=== PATIENT | female | born 2005 | race African-American/Black ===

== ENCOUNTER 2023-02-07 14:35 | Outpatient (CLI) | payer OTHER, SELFPAY ==
--- NOTE | ~2023-02-07 | US_ITS ---
EXAMINATION: US pelvic complete w TV DATE: 02/07/2023 15:31 INDICATION: Menorrhagia Comparison:No prior studies for comparison. TECHNIQUE: Multiple transabdominal and endovaginal sonographic images of the pelvis performed. FINDINGS: The uterus measures 5.3 x 2.8 x 3.3 cm. The endometrial complex measures 7.5 mm. The right ovary measures 2.9 x 1.9 x 3.6 cm and the left ovary measures 2.6 x 2.1 x 1.5 cm. There ar e small follicles in each ovary. Normal doppler signal in both ovaries. There is no free fluid in the pelvis. There are no abnormal masses seen on either side. IMPRESSION: 1. Unremarkable pelvic ultrasound. Reviewed, dictated and finalized at location L. OR ORACLE DATABASE ADMINISTRATOR
== END 2023-02-07 14:36 | disposition home or self-care (01) ==
PROVIDERS: Visit Provider Nurse Practitioner
DX: N92.1 Excessive and frequent menstruation with irregular cycle (principal)
CPT/HCPCS: 76830; 76856

== ENCOUNTER 2024-08-10 01:34 | Day surgery (SDC) | payer OTHER, SELFPAY ==
[2024-08-04 12:05] VITALS: BMI 62.6
--- NOTE | 2024-08-04 13:10 | PC.NURSE ---
Report to the Outpatient Waiting Room, entrance under the green pavilion located off [facility], at time _0700 on date _08/10/24 . Planned Procedure Time: _0900 .? Time changes happen often and if your time is changed the preop area will call you the afternoon before. - You and your visitor will be asked to self-screen and do not enter if you have any COVID symptoms. Please call surgeon if you need to reschedule. - A mask is optional within the hospital at this time. Patients may have clear liquids (water, carbonated beverages, clear teas, apple juice) until 3 hours prior to surgery with a maximum of 20 ounces. - No food from midnight until time of surgery and no smoking, or chewing tobacco (or any form of nicotine). No chewing gum, candy or mints. - Infants may have breast milk until 4 hours before surgery, infant formula 6 hours prior to surgery. - Children will be allowed to drink immediately following surgery.? If applicable, please bring a bottle or sippy cup to assist with drinking. Juice, water, soda, and popsicles are readily available.? For infants on formula, please bring formula the day of surgery.? Pacifiers are allowed. Take only the following medications with a SIP of water on the morning of surgery: _N/A DO NOT STOP ANY OF YOUR OTHER PRESCRIPTION MEDICATIONS PRIOR TO SURGERY EXCEPT THE FOLLOWING Hold all vitamins and supplements for 3 days per anesthesiologist. Medications to discontinue per physician ____N/A Date to take last dose____N/A Please no make-up, nail icelandic, hairspray, perfume, deodorant, or body powder the day of surgery.? No jewelry (including any body piercings) or valuables the day of surgery, leave them at home.? Please take a shower or bath the night before, or the morning of, surgery with an antibacterial soap.? Wear comfortable, loose fitting clothing.? Children are encouraged to wear pajamas. - Jewelry must be removed prior to entering the operating room.? Rings and piercings that are not removed may be cut off. - The hospital will not accept responsibility for valuables.? - Please leave all valuables, including medications, at home the day of surgery. If you are going home after surgery, a licensed racing car driver must drive you home.? - NO public transportation without another adult if you receive anesthesia. - We recommend that an adult stay with you for 24 hours following discharge. - We also recommend that you do not drive, make important decision, drink alcoholic beverages, or take any drugs that were not prescribed by your health care provider for at least 24 hours after your discharge time. For Pediatric surgeries, we recommend two adults accompany the child home. Follow any additional instructions given to you from your surgeon. Telephone instructions given to Jammie and asked if any additional questions and then verbalized understanding. Patient advised to call surgeon office or pre surgery nurse liaison [phone] if any additional questions.
--- OUTSIDE RECORDS SUMMARY | 2024-08-10 01:46 | XMS_ITS | Patient Health Record ---
Author Organization [facility] Address [address] [place] [address] Care Team Providers Care Take Up Supervisor Name Role Phone BañuelosAlex Primary Care Provider Allergies No Known Allergies Reason For Referral No Information Medications Medication SIG (Take, Route, Frequency, Duration) Notes Start Date End Date Status Ibuprofen 200 MG 2 capsules Orally Three times a day As needed Active Albuterol Sulfate HFA 108 (90 Base) MCG/ACT 2 puffs Inhalation every 6 hours for 30 days As needed 01/08/2024 Active Social History Tobacco Use: Social History Observation Description Date Details (start date - stop date) Never Smoker NA - NA Tobacco Control (Standard) Question Answer Notes Tobacco use: Nonsmoker AUDIT-C (Standard) Question Answer Notes Did you have a drink contain ing alcohol in the past year? Yes How often did you have six o r more drinks on one occasion in the past year? Never (0 point) How many drinks did you have on a typical day when you were drinking in the past year? 1 or 2 drinks (0 point) How often did you have a dri nk containing alcohol in the past year? Monthly or less (1 point) Points 1 Interpretation Negative Problems Problem Type SNOMED Code ICD Code Onset Dates Problem Status W/U Status Risk Notes Problem Morbid obesity (disorder) (437895164) Morbid (severe) obesity due to excess calories (E66.01) Active confirmed Problem Hyperglycemia (58151112) Hyperglycemia (R73.9) Active confirmed Problem Asthma (165931971) Asthma (J45.909) Active conf irmed Problem Left knee pain (484990403393343) Left knee pain (M25.562) Active confirmed Problem Urinary tract infectious disease (94190710) UTI (urinary tract infection) (N39.0) Active confirmed Problem Gastroesophageal reflux disease (815964181) GERD without esophagitis (K21.9) Active confirmed Problem History of tonsillectomy (situation) (124833448) S/P tonsillectomy (Z90.89) Active confirmed Vital Signs Heart Rate 75 /min 04/28/2024 ple Temperature 97.9 degrees Fahrenheit 04/28/2024 ple Respiratory Rate 16 /min 04/28/2024 ple Oximetry 99 % 04/28/2024 ple Blood pressure diastolic 86 mm Hg 04/28/2024 ple Height 66 in 04/28/2024 ple Blood pressure systolic 132 mm Hg 04/28/2024 ple Weight 382 lbs 04/28/2024 ple BMI 61.65 kg/m2 04/28/2024 ple Encounters Encounter Location Date Provider Diagnosis [address] [address] 12/04/2023 Alex Bañuelos Asthma J45.909 ; Morbid (severe) obesity due to excess calories E66.01 ; S/P tonsillectomy Z90.89 ; GERD without esophagitis K21.9 and Left knee pain M25.[address] [address] 12/18/2023 Alex Bañuelos Asthma J45.909 ; Morbid (severe) obesity due to excess calories E66.01 ; GERD without esophagitis K21.9 ; Hyperglycemia R73.9 and UTI (urinary tract infection) N39.0 [place] [id number] [address] 01/08/2024 Aelx Bañuelos Asthma J45.909 ; UTI (urinary tract infection) N39.0 ; GERD without esophagitis K21.9 and Hyperglycemia R73.[address] [address] 04/28/2024 Alex Bañuelos Asthma J45.909 ; DOM D without esophagitis K21.9 ; Hyperglycemia R73.9 ; Morbid (severe) obesity due to excess calories E66.01 and Left knee pain M25.562 Assessments Encounter Date Diagnosis (ICD Code) Assessment Notes Treatment Notes Treatment Clinical Notes Section Notes 04/28/2024 Asthma (ICD-10 - J45.909) Asthma in Adults: Care Instructions material was published 12/18/2023 Morbid (severe) obesity due to excess calories (ICD-10 - E66.01) 12/18/2023 Asthma (ICD-10 - J45.909) 12/04/2023 Morbid (severe) obesity due to excess calories (ICD-10 - E66.01) 12/04/2023 Asthma (ICD-10 - J45.909) Asthma in Adults: Care Instructions material was published 01/08/2024 Asthma (ICD-10 - J45.909) Asthma in Adults: Care Instructions material was published 01/08/2024 UTI (urinary tract infection) (ICD-10 - N39.0) 12/04/2023 S/P tonsillectomy (ICD-10 - Z90.89) 04/28/2024 GERD without esophagitis (ICD-10 - K21.9) 12/18/2023 GERD without esophagitis (ICD-10 - K21.9) 01/08/2024 GERD without esophagitis (ICD-10 - K21.9) 12/18/2023 Hyperglycemia (ICD-10 - R73.9) 04/28/2024 Hyperglycemia (ICD-10 - R73.9) 12/04/2023 GERD without esophagitis (ICD-10 - K21.9) 04/28/2024 Morbid (severe) obesity due to excess calories (ICD-10 - E66.01) 12/18/2023 UTI (urinary tract infection) (ICD-10 - N39.0) Urinary Tract Infection (UTI) in Women: Care Instructions material was published 01/08/2024 Hyperglycemia (ICD-10 - R73.9) 12/04/2023 Left knee pain (ICD-10 - M25.562) 04/28/2024 Left knee pain (ICD-10 - M25.562) Plan Of Treatment No Information Insurance Providers Payer Name Payer Address Payer Phone Subscriber Number Group Number Insured Name Patient Relationship to Insured Coverage Start Date Coverage End Date [employer] [address] [place], [place] [address] [phone] [id number] Dario Bustamante Self - patient is the insured 4 Medical (General) History Medical History History ICD Code Asthma Surgical History Surgery Date(Month/Year) Tonsillectomy 2018
--- OUTSIDE RECORDS SUMMARY | 2024-08-10 01:46 | XMS_ITS | Clinical Summary ---
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 Gender Identity Not on file Sexual Orientation Not on file Obstetrics History Last Filed Vital Signs Vital Sign Reading Time Taken Comments Blood Pressure 149/70 10/22/2021 9:21 PM CDT Pulse 69 10/22/2021 9:21 PM CDT Temperature 36.8 C (98.2 F) 10/22/2021 9:21 PM CDT Respiratory Rate 16 10/22/2021 9:21 PM CDT Oxygen Saturation 96% 10/22/2021 9:21 PM CDT Inhaled Oxygen Concentration - - Weight 130.5 kg (287 lb 11.2 oz) 10/22/2021 9:21 PM CDT Height 167.6 cm (5' 6) 10/22/2021 9:21 PM CDT Body Mass Index 46.44 10/22/2021 9:21 PM CDT Plan of Treatment Health Maintenance Due Date Last Done Comments Cervical Cancer Screening 2003 Depression Screening 2003 Hepatitis C Screening 2003 Pneumococcal vaccine <65 (1 of 1 - PPSV23) 2009 01/10/2004, 2003, 2003, Additional history exists Meningococcal B Vaccine (2 o f 2 - Bexsero SCDM 2-dose series) 02/11/2020 08/12/2019 Regular Well Visit/Exam 18-64 2021 Influenza Vaccine (Season Ended) 2024 12/28/2015, 12/01/2014, 11/30/2013, Additional history exists DTaP/Tdap/Td Vaccine (7 - Td or Tdap) 11/24/2024 11/24/2014, 08/21/2007, 03/13/2004, Additional history exists Hepatitis B Screening Completed 2003 , 2003, 2003 Varicella Vaccines Completed 08/21/2007, 03/13/2004 HPV Vaccines Completed 11/24/2014, 11/30/2013 Meningococcal Vaccine Completed 08/12/2019, 015 Insurance Care Teams Sack Sorter Relationship Specialty Start Date End Date Unknown, Notinfile PCP - General 10/22/21
--- OUTSIDE RECORDS SUMMARY | 2024-08-10 01:46 | XMS_ITS | Clinical Summary ---
Author Organization [facility] Address [address] [place] [address] Care Team Providers Care Pharmacy Clinical Coordinator Name Role Phone Unavailable Primary Care Provider Unavailabl e Source Comments [facility],non-owned Affiliates and Associated Physician Practices is amultiple site organization consisting of ambulatory clinics and hospital sitesin [place], [place], [place] and [place]. This disclosure is being madepursuant to the Care Everywhere program and may not contain all information available regarding this patient. Last updated 17.Reading Room [facility] Allergies Active Allergy Reactions Criticality Noted Date Comments Shellfish Allergy 03/23/2015 Medications * Be aware that medications may not be up to date on this document. Alwaysverify current medications with the patient. albuterol HFA (PROVENTIL;VENTOL IN;PROAIR) 108 (90 BASE) MCG/ACT inhaler Inhale 2 Puffs by mouth every 6 hours as needed. 1 Inhaler 5 1 Active albuterol (PROVENTIL;VENTOL IN) (2.5 MG/3ML) 0.083% nebulizer solution Inhale 5 mg by mouth every 4 hours while awake. 1 Box 4 1 Active albuterol HFA (PROVENTIL;VENTOL IN;PROAIR) 108 (90 BASE) MCG/ACT inhaler Inhale 2 Puffs by mouth every 4 hours as needed for Shortness of Breath, Wheezing or Cough. 1 Inhaler 5 1 Active vitamin D, ergocalciferol, (DRISDOL) 91107 UNITS capsuleIndication s:Vitamin D deficiency Take 1 Cap by mouth every 7 days 4 Cap 1 6 Active beclomethasone dipropionate (QVAR) 80 MCG/ACT inhaler Inhale 2 Puffs by mouth 2 times daily Active montelukast (SINGULAIR) 5 MG chew tablet Take 5 mg by mouth at bedtime Active melatonin 10 MG capsule Take 10 mg by mouth at bedtime Active FLUoxetine (PROZAC) 10 MG capsule Take 10 mg by mouth once daily Active docusate sodium (COLACE) 150 MG/15ML solution Take 10 mL by mouth once daily 75 mL 7 Active Active Problems Problem Noted Date Diagnosed Date Sprain of anterior talofibular ligament of right ankle 02/15/2017 Restless sleeper 08/06/2016 Overview (08/06/2016): Neg diag psg 07/29/16 rx Singulair OAHI 0.9 AHI 1.4 RDI 1.6 Min 02 sat 84% plm index 0.9 Congenital pes planus 06/02/2015 Prediabetes 03/23/2015 Right knee pain 02/15/2015 Social History Tobacco Use Types Packs/Day Years Used Date Smoking Tobacco: Passive Smo ke Exposure - Never Smoker Smokeless Tobacco: Current Alcohol Use Standard Drinks/Week Comments No 0 (1 standard drink = 0.6 oz pur e alcohol) Comments No Sex and Gender Information Value Date Recorded Sex Assigned at Not on file Legal Sex Female 9:51 AM OUTSIDE FOOD SERVER Gender Identity Not on file Sexual Orientation Not on file Last Filed Vital Signs Vital Sign Reading Time Taken Comments Blood Pressure 112/97 11/08/2016 3:15 PM CDT Pulse 81 11/08/2016 3:15 PM CDT Temperature 36.4 C (97.6 F) 11/08/2016 1:05 PM CDT Respiratory Rate 23 11/08/2016 3:15 PM CDT Oxygen Saturation 95% 11/08/2016 3:15 PM CDT Inhaled Oxygen Concentration - - Weight 104.4 kg (230 lb 2.6 oz) 018 11:29 AM OUTSIDE FOOD SERVER Height 167 cm (5' 5.75) 03/13/2017 11: 29 AM OUTSIDE FOOD SERVER Body Mass Index 37.43 03/13/2017 11:29 AM OUTSIDE FOOD SERVER Plan of Treatment Health Maintenance Due Date Last Done Comments HIV SCREENING 2018 HPV VACCINE (1 - 3-dose series) 2018 CHLAMYDIA/GONORRHEA SCREENING 2019 MENINGOCOCCAL (Group B) VACC INE SHARED DECISION-MAKING (1 of 2 - Standard) 2019 HEPATITIS C SCREENING 12/31/2020 DTAP/TDAP/TD VACCINES (1 - Tdap) 2022 HEPATITIS B VACCINE (1 of 3 - 19+ 3-dose series) 2022 COVID-19 VACCINE (1 - 2023-2 5 season) 2023 DEPRESSION SCREENING 03/11/2024 INFLUENZA VACCINE (Season Ended) 2024 ZOSTER VACCINE (1 of 2) 2053 HIB VACCINE Aged Out No longer eligi ble based on patient's age to complete this topic MENINGOCOCCAL GROUPS A/C/Y/W VACCINE Aged Out No longer eligible b ased on patient's age to complete this topic PNEUMOCOCCAL VACCINE Aged Out No long er eligible based on patient's age to complete this topic Insurance [facility]
--- OUTSIDE RECORDS SUMMARY | 2024-08-10 01:46 | XMS_ITS ---
Author Organization [facility] Address [address] [place] [address] Care Team Providers Care Puffer Tender Name Role Phone Alex Bañuelos Primary Care Provider Encounters Encounter Location Date Provider Diagnosis [place] [id number] [facility] [address] [place] [address] 04/16/2024 Alex Bañuelos Plan Of Treatment No Information Progress Notes * Dario CARRERODOB:[birth year] (19 yo F)Acc No.[id number]:04/16/2024 Progress Notes Patient: Dario LOZANO Provider: Dominik Bañuelos M.D. :2005 A ge:19 Y S ex:Female Date:04/16/2024 Address:[address] [place], [place] [id number] Subjective: * Chief Complaints: * * Medical History: Objective: * Vitals: Assessment: Plan: * Treatment: * * Electronic signature of Sharon Bañuelos MD on 08/10/2024 at 02:46 AM EDT Sign off status: Pending * Provider: Dominik Bañuelos M.D. Date: 04/16/2024 Generated for Printi ng/Faakankshag/eTransmitting on: 0 08/10/2024 02:46 AM EDT
--- OUTSIDE RECORDS SUMMARY | 2024-08-10 01:46 | XMS_ITS | Referral Summary ---
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
--- OUTSIDE RECORDS SUMMARY | 2024-08-10 01:46 | XMS_ITS ---
Author Organization [facility] Address [address] [address] Care Team Providers Care Colorectal Surgeon Name Role Phone Alex Bañuelos Primary Care Provider Allergies No Known Allergies REASON FOR VISIT F/U Asthma Medications Medication SIG (Take, Route, Frequency, Duration) [...] (Standard) Question Answer Notes Tobacco use: Nonsmoker Vital Signs Temperature 97.9 degrees Fahrenheit 04/28/19 25 Blood pressure systolic 132 mm Hg 04/28/19 25 Blood pressure diastolic 86 mm Hg 025 Heart Rate 75 /min 04/28/2024 Respiratory Rate 16 /min 04/28/2024 Height 66 in 04/28/2024 Weight 382 lbs 04/28/2024 BMI 61.65 kg/m2 04/28/2024 Oximetry 99 % 04/28/2024 ple Encounters Encounter Location Date Provider Diagnosis [facility] [address] [place] [address] [address] [place] [address] 04/28/2024 Alex Bañuelos Asthma J45.909 ; DOM D without esophagitis K21.9 ; Hyperglycemia R73.9 ; Morbid (severe) obesity due to excess calories E66.01 and Left knee pain M25.562 Assessments Encounter Date Diagnosis (ICD Code) Assessment Notes Treatment Notes Treatment Clinical Notes Section Notes 04/28/2024 Asthma (ICD-10 - J45.909) Asthma in Adults: Care Instructions material was published 04/28/2024 GERD without esophagitis (ICD-10 - K21.9) 04/28/2024 Hyperglycemia (ICD-10 - R73.9) 04/28/2024 Morbid (severe) obesity due to excess calories (ICD-10 - E66.01) 04/28/2024 Left knee pain (ICD-10 - M25.562) Plan Of Treatment Treatment Notes Assessment Notes Asthma Asthma in Adults: Ca re Instructions material was published Progress Notes * Dario CARRERODOB:[birth year] (19 yo F)Acc No.[id number]:04/28/2024 Progress Notes Patient: Dario LOZANO Provider: Dominik Bañuelos M.D. :2005 A ge:19 Y S ex:Female Date:04/28/2024 Address:[address] [place] [address] Subjective: * Chief Complaints: * 1 . F/U Asthma. * ROS: C onstitutional: No C onstit. Complaints . D enies A ppetites change . D enies E xcessive sweating . D enies F atigue . D enies F ever. D enies N ight sweats . D enies W eight gain. D enies W eight loss. E yes: No E ye complaints . D enies B lurred vision. D enies C orrective lenses. D enies D iplopia. D enies E ye irritation . D enies E ye pain . D enies S pots in vision . D enies V ision loss. ? E ars, nose, mouth, throat: No E NT complaints . D enies E ar pain . D enies H earing loss . D enies T innitus. D enies V ertigo. D enies F acial pain . D enies N key discharge. D enies N key obstruction . D enies N osebleeds. D enies P ostnasal drainage . D enies B leeding gums. D enies D ental pain . D enies M outh Lesions . D enies H oarseness. D enies S ore throat .? C ardiovascular: No C ardiovas. Complaints. D enies C hest pain .?Denies D ecr. exercise tolerance . D enies E xertional dyspnea . D enies O rthropnea. D enies P alpitations. D enies S yncope. D enies C laudication . Denies L eg ulcers . D enies P eripheral edema. R espiratory: No R espiratory Complaints . D enies C ough . D enies S putum production . D enies H emoptysis . D enies S hortness of Breath .?Denies P leuritic pain . D enies W heezing . D enies S noring . D enies A pneas. G astrointestinal: No G I Complaints . D enies A bdominal pain . D enies B loating . D enies F ood intolerance . D enies N ausea. D enies V omiting . D enies D ysphagia . D enies R eflux/heartburn . D enies C hange in bowel habits . D enies C onstipation . D enies D iarrhea . D enies B lack stools . D enies B loody stools. G enitourinary: No G U Complaints . D enies C hange in urinary stream . D enies D ysuria . D enies H ematuria . D enies I ncontinence . D enies N octuria . D enies U rinary frequency . D enies U rinary urgency . D enies D ysmenorrhea. D enies D yspareunia. D enies S exual dysfunction . D enies V aginal discharge . M usculoskeletal: Denies B ack pain . A dmits J oint pain . D enies J oint swelling . D enies L imited range of motion . D enies M uscle aches.?Denies M uscle weakness . D enies S tiffness . N eurologic: No N eurologic Complaints . D enies A bnormal gait . D enies F ocal weakness . D enies H eadache . D enies I ncoordination .?Denies M milo problems . D enies N umbness . D enies S eizures . D enies?Slurred Speech. P sychiatric: No P sychiatric Complaints . D enies A nxiety .?Denies D ecreased concentration . D enies I rritability . D enies P anic attacks . D enies S leep disturbance . D enies S adness/tearfulness. H ematologic/lymphatic: No H em/Lymph Complaints . D enies B ruising . D enies B leeding tendencies . D enies L ymphadenopathy . D enies R ecurrent infections . A llergic/immunologic: No A ll/Imm Complaints . D enies E czema. D enies S easonal allergies . D enies U rticaria . E ndocrine: No E ndocrine Complaints . D enies P olydipsia .?Denies P olyphagia . D enies P olyuria . * Medical History: A sthma. * Surgical History: T onsillectomy 2018. * Family History: F ather: alive. M other: alive. 3 sister(s) - healthy. . Maternal Grandfather - Migraine GUNN. * Social History: T obacco Use: T obacco Control (Standard) T obacco use: N onsmoker. D rugs/Alcohol: D rugs H ave you used drugs other than those for medical reasons in the past 12 months??No. C affeine I ntake: 1 -2 cups per day. D o you smoke marijuana?: Denies. Do you drink alcohol?: No. * Medications: T aking Ibuprofen 200 MG Capsule 2 capsules Orally Three times a day As needed, Taking Albuterol Sulfate HFA 108 (90 Base) MCG/ACT Aerosol Solution 2 puffs Inhalation every 6 hours As needed, Medication List reviewed and reconciled with the patient * Allergies: N .K.D.A. Objective: * Vitals: T emp:97.9F, HR:75/min, BP:132/86mm Hg, Wt:382lbs, BMI:61.65Index, Ht: 66 in, RR:16/min, Oxygen sat %:99%, Peak Flow: RA, Ht-cm: 167.64 cm, Wt-k.27 kg. ple. * Examination: G eneral Examination: FUNCTIONAL STATUS A mbulatory . COGNITIVE STATUS A lert and oriented. GENERAL APPEARANCE: i n no acute distress, well developed, well nourished. NUTRITIONAL STATUS N ormal . ASSISTED DEVICES N one. HEAD: n ormocephalic, atraumatic. EYES: p upils equal, reactive to light and accommodation.? EARS: n ormal. ORAL CAVITY: m ucosa moist. THROAT: c lear. NECK/THYROID: n sergio supple, full range of motion, no cervical lymphadenopathy. SKIN: w arm and dry. HEART: r egular rate and rhythm, S1, S2 normal. LUNGS: c lear to auscultation bilaterally. ABDOMEN: n ormal, bowel sounds present, soft, nontender, nondistended. EXTREMITIES: n o clubbing, cyanosis, or edema. NEUROLOGIC: n onfocal, cranial nerves 2-12 grossly intact, motor strength normal upper and lower extremities, sensory exam intact. PSYCH: a lert, oriented x 3. Assessment: * Assessment: 1. A sthma - J45.909 (Primary) 2 . G ERD without esophagitis - K21.9 ? 3 . H yperglycemia - R73.9 4 . M orbid (severe) obesity due to excess calories - E66.01 5 . L eft knee pain - M25.562 Plan: * Treatment: * Preventive Medicine: Counseling: C are goal follow-up plan: A akhil Normal BMI Follow-up E xercise promotion: stretching, Feeding regime. * * Electronic signature of Sharon Bañuelos MD on 08/10/2024 at 02:46 AM EDT Sign off status: Pending * Provider: Dominik Bañuelos M.D. Date: 0 04/28/2024 Generated for Valentina segundo/Sari/Rosa Mariaitting on: 0 08/10/2024 02:46 AM EDT History and Physical Notes * Examination Category Sub-Category Detail Notes Category Not es General Examination GENERAL APPEARANCE: in no ac antonio distress, well developed, well nourished HEAD: normocephalic, atrau matic EYES: pupils equal, reacti ve to light and accommodation EARS: normal THROAT: clear NECK/THYROID: neck supple, full ra nge of motion, no cervical lymphadenopathy HEART: regular rate and rhy thm, S1, S2 normal LUNGS: clear to auscultatio n bilaterally ABDOMEN: normal, bowel sounds present, soft, nontender, nondistended NEUROLOGIC: nonfocal, cranial ne rves 2-12 grossly intact, motor strength normal upper and lower extremities, sensory exam intact SKIN: warm and dry EXTREMITIES: no clubbing, cyanosi s, or edema PSYCH: alert, oriented x 3 ORAL CAVITY: mucosa moist FUNCTIONAL STATUS Ambulatory COGNITIVE STATUS Alert and oriented NUTRITIONAL STATUS Normal ASSISTED DEVICES None
--- OUTSIDE RECORDS SUMMARY | 2024-08-10 01:46 | XMS_ITS ---
Author Organization [facility] Address [address] [facility] [address] [place] [address] Care Team Providers Care Manufacturing Maintenance Mechanic Name Role Phone Alex Bañuelos Primary Care Provider [phone] Encounters Encounter Location Date Provider Diagnosis [place] [id number] [facility] [address] [place] [address] 05/27/2024 Alex Bañuelos Plan Of Treatment No Information Progress Notes * Dario CARRERODOB:[birth year] (19 yo F)Acc No.[id number]:05/27/2024 Progress Notes Patient: Dario LOZANO Provider: Dominik Bañuelos M.D. :2005 A ge:19 Y S ex:Female Date:05/27/2024 Address:[address] [place], [place] [id number] Subjective: * Chief Complaints: * * Medical History: Objective: * Vitals: Assessment: Plan: * Treatment: * * Electronic signature of Sharon Bañuelos MD on 08/10/2024 at 02:45 AM EDT Sign off status: Pending * Provider: Dominik Bañuelos M.D. Date: 05/27/2024 Generated for Printi ng/Faakankshag/eTransmitting on: 08/10/2024 02:45 AM EDT
[2024-08-10 07:00] VITALS: BP 138/78; PULSE 81; RESP 18; TEMP 36.4; O2SAT 99
[2024-08-10 07:18] LABS: BEDSIDEPREGUCG Negative (Negative)
[2024-08-10] MEDS: ACETAMINOPHEN 500 MG TABLET 1000 MG PO (07:20)
[2024-08-10] MEDS: LACTATED RINGERS 1,000 ML 30 ML IV CONT (07:25)
--- NOTE | 2024-08-10 07:26 | P.HP_ITS ---
History of Present Illness History of Present Illness Consent: Risks, benefits, and alternatives have been discussed and questions answered. Patient agrees to proceed with procedure. Chief complaint: menorrhagia Narrative: Dario Salcedo is a 19 year old female with prolonged bleeding from February of 2024 to July of 2024. Patient presents for D&C hysteroscopy. The patient did not present for care since January of 2023. The patient states no change in medical care or problems. Patient's labs reveal no anemia with a hemoglobin of 11.4. Her hemoglobin A1c however is 6.4 to noting borderline diabetes. Patient agrees to proceed with the procedure risks were discussed in the office including risks of infection, bleeding, perforation, and possible pathology. Review of Systems Review of Systems: not repeated day of surgery; patient states no changes in status PMFSH Past Medical History Medical History (Updated 08/10/24 @ 07:31 by Ewa Dillard MD) Migraine PCOS (polycystic ovarian syndrome) Depression Asthma Surgical History Surgical History (Updated 08/10/24 @ 07:29 by Ewa Dillard MD) History of tonsillectomy and adenoidectomy Social History Social History Smoking status: Never smoker Alcohol use details: socially, rare usage Living arrangements: with family Spiritual care concerns: No Meds Home Medications and Allergies Home Medications ?Medication ?Instructions ?Recorded ?Confirmed ?Type No Home Medications 08/04/24 08/04/24 History Allergies Allergy/AdvReac Type Severity Reaction Status Date / Time shellfish derived Allergy Severe Swelling Verified 08/04/24 12:04 of Lip/Tongue/Throat Vital Signs Vital Signs - 24 hr 08/10/24 07:00 Temperature 97.6 F Pulse Rate 81 Respiratory Rate 18 Blood Pressure 138/78 Pulse Oximetry 99 Oxygen Delivery Room Air Exam Const: General: overweight (388) Resp: Effort & Inspection: normal respiratory effort GI: GI Palp: No abdominal tenderness : External Female Exam: normal external appearance Speculum Exam - Vagina: normal appearance of the vagina Speculum Exam - Cervix: normal rufino earance of the cervix Bimanual exam- vagina & uterus: normal bimanual exam (Suboptimal due to weight) Assessment and Plan Assessment and plan (1) Menorrhagia: Code(s): N92.0 - Excessive and frequent menstruation with regular cycle Status: Acute Assessment and Plan: Plan to proceed with D&C hysteroscopy
--- NOTE | 2024-08-10 07:26 | WPDHPUPDATE1 ---
History and Physical Update Update Date/Time: 08/10/24 07:26 History and Physical has been reviewed, including an updated exam of the patient. There are NO changes in the patient's condition. Risks, benefits, and alternatives have been discussed and questions answered. Patient agrees to proceed with procedure.
--- NOTE | 2024-08-10 07:55 | WPDANESEPPF ---
Anes - Initial Pre Proc Eval Procedure: Operation Date: 08/10/24 09:00 Proposed Procedures p Hysteroscopy Dilation and Curettage - Ewa Dillard MD Date/Time: 08/10/24 07:55 Surgeon: Ewa Dillard MD Pre Op Diagnosis: menorrhagia Patient Data Age: 19 Gender: F Height: 1.68 m Weight: 165.8 kg Last Vital Signs Temp 36.4 C 08/10/24 07:00 Pulse 81 08/10/24 07:00 Resp 18 08/10/24 07:00 BP 138/78 08/10/24 07:00 Pulse Ox 99 08/10/24 07:00 O2 Del Method Room Air 08/10/24 07:00 Allergies Allergy/AdvReac Type Severity Reaction Status Date / Time shellfish derived Allergy Severe Swelling Verified 08/04/24 12:04 of Lip/Tongue/Throat Home Medications ?Medication ?Instructions ?Recorded ?Confirmed ?Type No Home Medications 08/04/24 08/04/24 History Laboratory Tests 08/10/24 07:16 POC Urine HCG, Qual Negative (Negative) Patient hx anesthesia problems: none Family hx anesthesia problems: none Results Review: All pre-operative results and documents have been reviewed as part of the pre-operative evaluation. [facility] Past Medical History Medical History Migraine PCOS (polycystic ovarian syndrome) Depression Asthma Surgical History Surgical History History of tonsillectomy and adenoidectomy Social History Social History Smoking status: Never smoker Alcohol use details: socially, rare usage Living arrangements: with family Spiritual care concerns: No Anes - Eval Final PreProcedure Day of Procedure 08/10/24 07:55 Patient weight: super morbidly obese Heart: regular rate and rhythm Lungs: clear to auscultation Airway: Mallampati scale class II Neurological: alert and oriented Last oral intake: >/= 8 hours ASA classification: IV Emergent: no Anesthetic plan: proceed Anesthesia type and monitoring: general LMA and standard monitoring Results Review: All pre-operative results and documents have been reviewed as part of the pre-operative evaluation. Informed Consent: The patient's anesthetic plan and its attendant risks and benefits were discussed with the patient/family/POA. Questions were solicited and answers provided to the satisfaction of the patient/family/POA.
--- NOTE | 2024-08-10 09:14 | S_PTH ---
PATIENT: Dario Salcedo LOC: [facility]#:[id number] AGE/SX: 19/F ROOM: RE08/10/[address]: Ewa Dillard MD : 2005 BED: DIS: 08/10/2024 SPEC #: [id number] RECD: 08/10/24 10:25 STATUS: BAUDILIO REGela #: [id number] ANGUS: 08/10/24 09:[address]: Ewa Dillard DEPT: [facility] Surgical RECD BY: Gloria Espinoza ENTERED: 08/10/24 10:25 SP TYPE: Surgical OTHR DR: Alex Bañuelos, Tissues: A - Endometrial Curettings Procedures: Hematoxylin and Eosin Stain Gross and Microscopic Level 4
[2024-08-10 09:24] VITALS: BP 132/91; PULSE 77; RESP 20; O2SAT 98
--- NOTE | 2024-08-10 09:25 | W.PM.PROC2 ---
Procedure Note - Detailed Date of Procedure 08/10/24 Pre-op Diagnosis menorrhagia Post-op Diagnosis Same Procedure Performed D&C hysteroscopy Surgeon Ewa Dillard MD Anesthesia MAC Findings Uterus sounds to 7cm and appears grossly thickened. No discrete lesions. Description of Procedure The patient was taken to the operating room and placed under anesthesia in the dorsal lithotomy position. She was prepped and draped in the usual sterile fashion. [place] speculum was placed in the vagina and the cervix grasped on the anterior lip with a tenaculum. The uterus is sounded to 7cm. The hysteroscope was placed and with no discrete abnormalities noted the hysteroscope was removed. The sharp curette was used to curette the endometrium until a good uterine cry was noted in all areas. All instruments are removed. Sponge, needle, and instrument counts are correct per the OR staff. The patient was awakened from anesthesia and taken to recovery in stable condition. Estimated Blood Loss 5 Drains No Packing No Pathology Yes (Endometrial curettings) Complications No immediate complications Condition Stable Disposition PACU
[2024-08-10] MEDS: fentaNYL CITRATE INJ (*CRX) 100 MCG/2 ML VIAL 25 MCG IV PUSH ×4 (09:33→09:45)
[2024-08-10] MEDS: KETOROLAC 30 MG/ML VIAL (*BKC) IV PUSH (09:35)
[2024-08-10 09:50] VITALS: BP 125/75; PULSE 55; RESP 18; O2SAT 96
[2024-08-10 10:20] VITALS: BP 125/77; PULSE 53; RESP 18
== END 2024-08-10 10:41 | disposition home or self-care (01) ==
PROVIDERS: Anesthesiology; PCP Internal Medicine; Visit Provider Obstetrics & Gynecology Gynecology
PROC: 0U5B8ZZ Destruction of Endometrium, Via Natural or Artificial Opening Endoscopic (ICD-10-PCS; CPT 58563; principal; 2024-08-10 09:00)
DX: N92.0 Excessive and frequent menstruation with regular cycle (principal); E28.2 Polycystic ovarian syndrome; F32.A Depression, unspecified; J45.909 Unspecified asthma, uncomplicated; Z98.890 Other specified postprocedural states
CPT/HCPCS: 58558; 88305; A4248; A9270; J1885; J2003; J2250; J2704; J3010; J7120